=== PATIENT | female | born 1935 | race Caucasian/White ===

== ENCOUNTER 2016-06-28 16:06 | Emergency (ER) | payer OTHER ==
[~2016-06-28] VITALS: Ht 162.6 cm; Wt 64.3 kg
[~2016-06-28 16:06] MED LIST: B-12 IM; CRESTOR5 MG PO; LEVOTHYROXINE25 MCG PO; LORAZEPAM0.5 MG PO; SERTRALINE HCL100 MG PO; THYROID MEDICATION
[2016-06-28] MEDS ORDERED: PERCOCET 5/31 TABLET PO (17:45)
[2016-06-28] MEDS ORDERED: VALACYCLOVIR500 MG PO (18:32)
[2016-06-28] MEDS ORDERED: ESCITALOPRAM OX10 MG PO (18:32)
[2016-06-28] MEDS ORDERED: ASPIR 8181 M1 PO (18:33)
[2016-06-28] MEDS ORDERED: PRESERVISIO1 CAPSULE PO (18:34)
[2016-06-28] MEDS ORDERED: LEVO-T25 MCG PO (18:34)
[2016-06-28 18:49] LABS: HEMATOCRIT 41.3 % (36.0-46.0); MCH 33.5 PG (29.0-34.0); MCHC 34.6 G/DL (30.0-36.0); MCV 96.7 FL (83-99); MEAN PLAT.VOLUME 10.4 uM^3 (9.5-12.4); PLATELET COUNT 194 K/uL (156-360); RBC DIS.WIDTH-CV 11.9 % (11.8-14.6); RBC DIS.WIDTH-SD 40.9 % (39-53); RED BLOOD COUNT 4.27 M/uL (3.80-5.20); WHITE BLOOD COUNT 9.3 K/uL (4.1-10.2)
[2016-06-28 19:10] LABS: CHLORIDE 106 mEq/L (99-109); POTASSIUM 4.7 mEq/L (3.7-5.4); SODIUM 140 mEq/L (136-147)
[2016-06-28 19:12] LABS: GLUCOSE 101 mg/dL (70-99)
[2016-06-28 19:13] LABS: ANION GAP 9 MEQ/L (2-14)
[2016-06-28 19:16] LABS: GFR ESTIMATE (CALCULATED) 56 mL/min/; UREA NITROGEN (BUN) 22 mg/dL (9-23)
[2016-06-28 23:20] VITALS: BP 137/62
== END 2016-06-28 23:21 | disposition home or self-care (01) ==
LOC: EME 16:06
PROVIDERS: Emergency Medicine
DX: M54.41 Lumbago with sciatica, right side (principal); M54.16 Radiculopathy, lumbar region; E78.5 Hyperlipidemia, unspecified; Z79.82 Long term (current) use of aspirin
CPT/HCPCS: 72148; 80048; 85027; 99281; 99284; J1885

== ENCOUNTER → 2016-07-17 | Outpatient (CLI) | payer OTHER ==
[~2016-07-17] MED LIST changes: +ASPIR 8181 M1 PO; +ESCITALOPRAM OX10 MG PO; +LEVO-T25 MCG PO; +PERCOCET 5/31 TABLET PO; +PRESERVISIO1 CAPSULE PO; +VALACYCLOVIR500 MG PO
== END | disposition home or self-care (01) ==
LOC: CDC 10:42
DX: Z01.810 Encounter for preprocedural cardiovascular examination (principal); M51.14 Intervertebral disc disorders with radiculopathy, thoracic region
CPT/HCPCS: 93000

== ENCOUNTER 2016-07-23 05:17 | Day surgery (SDC) | payer OTHER ==
[~2016-07-23] VITALS: Ht 162.6 cm; Wt 64.9 kg
[2016-07-23 06:05] VITALS: BP 176/83
[2016-07-23 10:20] VITALS: BP 171/55
[2016-07-23 11:22] VITALS: BP 136/54
== END 2016-07-23 11:37 | disposition home or self-care (01) ==
LOC: SDC 05:17
DX: M51.26 Other intervertebral disc displacement, lumbar region (principal); M54.16 Radiculopathy, lumbar region; M53.3 Sacrococcygeal disorders, not elsewhere classified; E78.5 Hyperlipidemia, unspecified; F41.1 Generalized anxiety disorder
CPT/HCPCS: 72020; 76000; J0330; J0690; J1100; J2250; J2405; J2710; J3010

== ENCOUNTER 2016-07-23 16:32 | Emergency (ER) | payer OTHER ==
[~2016-07-23] VITALS: Ht 162.6 cm; Wt 65.4 kg
[2016-07-23 18:42] VITALS: BP 154/79
== END 2016-07-23 18:42 | disposition home or self-care (01) ==
LOC: EME 16:32
PROC: 0T9B70Z Drainage of Bladder with Drainage Device, Via Natural or Artificial Opening (ICD-10-PCS; principal; 2016-07-23)
DX: R33.9 Retention of urine, unspecified (principal); T41.205A Adverse effect of unspecified general anesthetics, initial encounter; Z98.890 Other specified postprocedural states; E78.5 Hyperlipidemia, unspecified; Z79.82 Long term (current) use of aspirin
CPT/HCPCS: 99281; 99284

== ENCOUNTER 2016-07-26 20:42 | Emergency (ER) | payer OTHER ==
[~2016-07-26] VITALS: Ht 162.6 cm; Wt 61.9 kg
[2016-07-26 21:24] LABS: CHLORIDE 105 mEq/L (99-109); POTASSIUM 3.7 mEq/L (3.7-5.4); SODIUM 137 mEq/L (136-147)
[2016-07-26 21:27] LABS: GLUCOSE 108 mg/dL (70-99)
[2016-07-26 21:28] LABS: ANION GAP 14 MEQ/L (2-14); TOTAL BILIRUBIN 0.8 mg/dL (0.0-1.0)
[2016-07-26 21:30] LABS: ALKALINE PHOSPHATASE 93 IU/L (3-129); GFR ESTIMATE (CALCULATED) > 59 mL/min/; SERUM ETHYL ALCOHOL < 10 mg/dL
[2016-07-26 21:31] LABS: UREA NITROGEN (BUN) 11 mg/dL (9-23)
[2016-07-26 21:38] LABS: HEMATOCRIT 37.9 % (36.0-46.0); MCHC 35.1 G/DL (30.0-36.0); MCV 96.9 FL (83-99); MEAN PLAT.VOLUME 9.4 uM^3 (9.5-12.4); PLATELET COUNT 215 K/uL (156-360); RED BLOOD COUNT 3.91 M/uL (3.80-5.20); WHITE BLOOD COUNT 6.2 K/uL (4.1-10.2)
[2016-07-26 23:07] VITALS: BP 167/89
== END 2016-07-26 23:09 | disposition home or self-care (01) ==
LOC: EME 20:42
PROVIDERS: Emergency Medicine
DX: F32.9 Major depressive disorder, single episode, unspecified (principal); E78.5 Hyperlipidemia, unspecified
CPT/HCPCS: 80053; 81003; 85027; 90839; 99281; 99285; G0480

== ENCOUNTER 2016-07-28 13:42 | Inpatient (IN) | payer OTHER ==
[~2016-07-28] VITALS: Ht 162.6 cm; Wt 62.7 kg
[2016-07-28 14:22] LABS: EOSINOPHIL COUNT 0.1 K/uL (0-0.3); HEMATOCRIT 40.8 % (36.0-46.0); LYMPHOCYTE COUNT 1.2 K/uL (1.0-2.8); MCH 33.6 PG (29.0-34.0); MCHC 34.6 G/DL (30.0-36.0); MCV 97.1 FL (83-99); MEAN PLAT.VOLUME 9.4 uM^3 (9.5-12.4); MONOCYTE COUNT 0.6 K/uL (0-0.8); NEUTROPHIL (%) 71.5 % (45-76); NEUTROPHIL COUNT 5.1 K/uL (1.8-6.4); PLATELET COUNT 253 K/uL (156-360); RBC DIS.WIDTH-CV 13.1 % (11.8-14.6); RBC DIS.WIDTH-SD 44.5 % (39-53); WHITE BLOOD COUNT 7.1 K/uL (4.1-10.2)
[2016-07-28 14:40] LABS: CHLORIDE 105 mEq/L (99-109); SODIUM 138 mEq/L (136-147)
[2016-07-28 14:42] LABS: GLUCOSE 105 mg/dL (70-99)
[2016-07-28 14:44] LABS: ANION GAP 12 MEQ/L (2-14); POTASSIUM 4.7 mEq/L (3.7-5.4); TOTAL BILIRUBIN 0.7 mg/dL (0.0-1.0)
[2016-07-28 14:46] LABS: ALKALINE PHOSPHATASE 99 IU/L (3-129); GFR ESTIMATE (CALCULATED) > 59 mL/min/
[2016-07-28 14:47] LABS: UREA NITROGEN (BUN) 17 mg/dL (9-23)
[2016-07-28 15:10] LABS: ADD MIUA? YES; BILIRUBIN NEGATIVE; BLOOD TRACE; COLOR YELLOW ((YELLOW)); GLUCOSE (STRIP) NEGATIVE; KETONES 40; LEUKOCYTES NEGATIVE; NITRITE NEGATIVE; PROTEIN (STRIP) NEGATIVE; UROBILINOGEN 0.2 MG/DL (0.2-1.0)
[2016-07-28 15:47] LABS: EPITHELIAL CELLS 1+ /HPF; MUCUS 2+ /LPF; RED BLOOD CELLS NONE SEEN /HPF (0-5); WHITE BLOOD CELLS RARE /HPF (0-5)
[2016-07-28 15:49] LABS: AMORPHOUS URATES CRYSTALS 1+; BACTERIA RARE /HPF; CASTS NONE SEEN /LPF; CRYSTALS PRESENT; UCUL ADDED? NO
[2016-07-28] MEDS ORDERED: EYE DROP TEARS15 ML BOTH EYES (18:30)
[2016-07-28 20:31] VITALS: BP 184/88
[2016-07-29 08:02] VITALS: BP 177/77
[2016-07-29 15:32] VITALS: BP 176/82
[2016-07-29 19:14] VITALS: BP 134/62
[2016-07-30 07:43] VITALS: BP 169/80
[2016-07-30 16:29] VITALS: BP 144/73
[2016-07-31 07:47] VITALS: BP 178/81
[2016-07-31] MEDS ORDERED: ESCITALOPRAM OX10 MG PO (09:03)
== END 2016-07-31 10:56 | disposition home or self-care (01) | DRG 881 ==
LOC: EME 13:42 → EDOF 18:02 → 1WEST 18:02
PROVIDERS: Emergency Medicine
DX: F32.9 Major depressive disorder, single episode, unspecified (principal); E78.5 Hyperlipidemia, unspecified; E03.9 Hypothyroidism, unspecified; Z79.82 Long term (current) use of aspirin
CPT/HCPCS: 71010; 80053; 81003; 85025; 90839; 99281; 99285; J2405; J7040